=== PATIENT | female | born 1940 | race Caucasian/White ===

== ENCOUNTER 2017-04-06 09:41 | Emergency (ER) | payer OTHER ==
[~2017-04-06] VITALS: Ht 170.2 cm; Wt 130.2 kg
[~2017-04-06 09:41] MED LIST: ADVAIR 250/501 DISK IH; ASCORBIC ACID500 M3 PO; BENADRYL25 MG PO; BISACODYL SUPP10 MG PR; CHERATUSSIN AC473 ML PO; COMPAZINE25 M1 PR; COQ-10100 MG PO; COUMADIN1 MG PO; DAILY MULTIPLE1 EACH PO; FLOMAX0.4 MG PO; FOLIC ACID1 MG PO; GLUCAGEN1 MG IM/SC; LEVOFLOXACIN500 MG PO; LIDODERM 5% P1 PATCH TD; LO-DOSE ASPIRIN81 M1 PO; LOTREL 10/21 CAPSULE PO; METFORMIN HCL500 MG PO; METHOCARBAMOL500 MG PO; NOVOLOG PE100 UNITS/ SC; OXYCODONE HCL5 MG PO; PERCOCET 5/31 TABLET PO; SENNA-TIME S T1 EACH PO; SIMVASTATIN20 MG PO; TRICOR48 MG PO; TYLENOL EXTRA500 MG PO; VENTOLIN HFA18 GM IH; VITAMIN D1000 INTUN PO; VITAMIN D1000 UNIT PO
[2017-04-06] MEDS ORDERED: LOTREL 5/201 CAPSULE PO (11:04)
[2017-04-06] MEDS ORDERED: ULTRAM50 MG PO (11:07)
[2017-04-06] MEDS ORDERED: AZITHROMYCIN250 MG PO (11:08)
[2017-04-06] MEDS ORDERED: FUROSEMIDE40 MG PO (11:08)
[2017-04-06] MEDS ORDERED: ALBUTEROL2.5 MG/3 M IH (11:09)
[2017-04-06] MEDS ORDERED: ZYRTEC10 M2 PO (11:09)
[2017-04-06 11:30] LABS: HEMATOCRIT 41.4 % (36.0-46.0); MCHC 32.1 G/DL (30.0-36.0); MCV 93.2 FL (83-99); MEAN PLAT.VOLUME 8.9 uM^3 (9.5-12.4); PLATELET COUNT 273 K/uL (156-360); RBC DIS.WIDTH-CV 13.4 % (11.8-14.6); RBC DIS.WIDTH-SD 45.7 % (39-53); RED BLOOD COUNT 4.44 M/uL (3.80-5.20); WHITE BLOOD COUNT 8.4 K/uL (4.1-10.2)
[2017-04-06 11:42] LABS: CHLORIDE 108 mEq/L (99-109); POTASSIUM 5.1 mEq/L (3.7-5.4); SODIUM 142 mEq/L (136-147)
[2017-04-06 11:44] LABS: GLUCOSE 100 mg/dL (70-99)
[2017-04-06 11:45] LABS: ANION GAP 11 MEQ/L (2-14)
[2017-04-06 11:46] LABS: TOTAL BILIRUBIN 0.3 mg/dL (0.0-1.0)
[2017-04-06 11:48] LABS: ALKALINE PHOSPHATASE 75 IU/L (3-129); GFR ESTIMATE (CALCULATED) 42 mL/min/
[2017-04-06 11:49] LABS: UREA NITROGEN (BUN) 21 mg/dL (9-23)
[2017-04-06 16:39] VITALS: BP 176/82
== END 2017-04-06 16:58 | disposition home or self-care (01) ==
LOC: EME 09:41
PROVIDERS: Nurse Practitioner Family
DX: R60.0 Localized edema (principal); R06.02 Shortness of breath; R05 Cough; I51.7 Cardiomegaly; I10 Essential (primary) hypertension; E78.5 Hyperlipidemia, unspecified; E11.9 Type 2 diabetes mellitus without complications; Z79.84 Long term (current) use of oral hypoglycemic drugs; Z85.3 Personal history of malignant neoplasm of breast; Z90.10 Acquired absence of unspecified breast and nipple; Z90.710 Acquired absence of both cervix and uterus; Z79.82 Long term (current) use of aspirin
CPT/HCPCS: 71020; 80053; 83880; 85027; 93005; 93970; 99281; 99285; J1940